=== PATIENT | female | born 1975 | race African-American/Black ===

== ENCOUNTER 2024-01-23 09:06 | Emergency (ER) ==
[2024-01-23] MEDS ORDERED: Acetaminophen 325 MG TAB ONE (09:49)
== END 2024-01-23 10:05 | disposition home or self-care (01) ==
LOC: NAV ERS 09:06
DX: R51.9 Headache, unspecified (principal); I10 Essential (primary) hypertension; Z79.899 Other long term (current) drug therapy
CPT/HCPCS: 99283

== ENCOUNTER 2024-08-03 21:45 | Emergency (ER) | payer BC, OTHER ==
[2024-08-03] MEDS ORDERED: Mag-Al Plus 1200/1200/120 MG (30 mL) UDCUP ONE (22:21)
[2024-08-03] MEDS ORDERED: Lidocaine Viscous Sol 2% 15 ml UD Cup ONE (22:22)
== END 2024-08-03 23:24 | disposition home or self-care (01) ==
LOC: NAV ERS 21:45
DX: K21.9 Gastro-esophageal reflux disease without esophagitis (principal); R10.13 Epigastric pain; I10 Essential (primary) hypertension; Z87.891 Personal history of nicotine dependence
CPT/HCPCS: 99283

== ENCOUNTER 2025-05-03 19:50 | Emergency (ER) | payer OTHER ==
[2025-05-03] MEDS ORDERED: Cephalexin 500 MG CAP ONE (20:05)
== END 2025-05-03 20:20 | disposition home or self-care (01) ==
LOC: NAV ERS 19:50
DX: L04.9 Acute lymphadenitis, unspecified (principal); I10 Essential (primary) hypertension; Z79.82 Long term (current) use of aspirin; Z87.891 Personal history of nicotine dependence; Z79.899 Other long term (current) drug therapy
CPT/HCPCS: 99282